=== PATIENT | male | born 1960 | race Caucasian/White ===

== ENCOUNTER 2021-04-09 05:21 | Inpatient (IN) | payer OTHER ==
[~2021-04-09] VITALS: Ht 195.6 cm; Wt 136.1 kg
--- NOTE | 2021-04-09 08:30 | NUR ---
RN NOTE PATIENT WAS TRANSFERRED TO 309-2 VIA [facility]. A/O X4. PRIMARY LANGUAGE IS FAR[place] BUT CAN SPEAK AND UNDERSTAND KOREAN. ABLE TO MAKE NEEDS KNOWN. A/O X4. ON ROOM AIR, TOLERATING WELL. DENIES SOB. IN NO APPARENT DISTRESS. VS BP 141/75 [place] 83 RR 20 T 98.3 SA02 97%. IV ACCESS ON L AC #20, INTACT AND PATENT. NO KNOWN ALLERGIES. PATIENT HAS A KERLIX WRAPPED ON HIS RT FOOT D/T FRACTURE. SAFETY MEASURES MAINTAINED. BED IN LOWEST POSITION, BRAKES LOCKED. SIDE RAILS UP X2. CALL LIGHT WITHIN REACH. WILL CONTINUE PLAN OF CARE.
[2021-04-09] MEDS ORDERED: ATOR40TA PO (08:38)
[2021-04-09] MEDS ORDERED: GLIM2TAB31 PO (08:38)
[2021-04-09] MEDS ORDERED: METF-440 PO (08:38)
[2021-04-09] MEDS ORDERED: ASPI-1169 PO (08:38)
--- NOTE | 2021-04-09 09:43 | NUR ---
RN NOTE RECEIVED REPORT FROM FRANK BACA OF [facility]. Addendum: 04/09/21 at 0944 by JERRY MCCOY RN TIME RECEIVED WAS 0800. CALL BACK NO IS [phone]
[2021-04-09 10:46] VITALS: BP 141/75
[2021-04-09] MEDS ORDERED: ZOLPIDEM TARTRATE 5 MG TABLET PO PRN (11:30)
[2021-04-09] MEDS ORDERED: ONDANSETRON HCL/PF 4 MG/2 ML VIAL IVP PRN (11:30)
[2021-04-09] MEDS ORDERED: Z GUARD REMEDY 2 OZ OINT TP PRN (11:30)
[2021-04-09] MEDS ORDERED: MAG HYDROX/AL HYDROX/SIMETH 30 ML UDC PO PRN (11:30)
[2021-04-09] MEDS ORDERED: ACETAMINOPHEN 325 MG TABLET PO PRN (11:30)
[2021-04-09] MEDS ORDERED: ENOXAPARIN SODIUM 40 MG/0.4 ML DISP.SYRIN SQ SCH ×2 (11:30→11:52)
--- NOTE | 2021-04-09 11:32 | NUR ---
RN NOTE HELD FRANCESCO. R FT HAS NOTED SOME PRESENCE OF BLEEDING.
--- NOTE | 2021-04-09 12:38 | NUR ---
KRISTEN casey called for ortho consult. according to dispatcher Dr. Doty is customer service and sales consultant. All info taken and dr will be paged. awaiting for call back from Dr Doty.
--- NOTE | 2021-04-09 13:01 | NUR ---
RN NOTE SPOKE WITH DR RIGGS AND HE GAVE ORDERED THRU PHONE. ANCEF 1 GM EVERY 8 HRS FOR SUSPECTED INFECTION. ORDER READ BACK AND CARRIED OUT.
--- NOTE | 2021-04-09 13:37 | NUR ---
Received call from Dr. Ira casey to call plastic surgery assistant diamond powder mixer for consult. According to Dr. diaz he discussed the case with Dr. Doty.
--- NOTE | 2021-04-09 13:41 | NUR ---
technician semiconductor development visual aid expert Dr. Morrison paged.
[2021-04-09 14:09] LABS: BASOPHILS # (AUTO) 0.1 K/uL (0.0-0.2); BASOPHILS % (AUTO) 0.7 % (0.0-2.0); EOSINOPHILS % (AUTO) 0.5 % (0.0-6.0); HEMATOCRIT 41 % (39-51); HEMOGLOBIN 13.5 g/dL (13.5-17.5); LYMPHOCYTES # (AUTO) 1.7 K/uL (0.8-4.8); LYMPHOCYTES % (AUTO) 17.9 % (20.0-44.0); MEAN CORPUSCULAR HGB CONC 33 g/dl (31.0-36.0); MEAN CORPUSCULAR VOLUME 86 fL (80-96); MONOCYTES # (AUTO) 0.9 K/uL (0.1-1.30); MONOCYTES % (AUTO) 9.8 % (2.0-12.0); NEUTROPHILS # (AUTO) 6.7 K/uL (1.8-8.9); NEUTROPHILS % (AUTO) 71.1 % (43.0-81.0); PLATELET COUNT (AUTO) 229 K/uL (150-450); RED BLOOD CELL COUNT(AUTO) 4.76 MIL/uL (4.5-6.0); WHITE BLOOD COUNT (AUTO) 9.5 K/uL (4.3-11.0)
[2021-04-09 14:30] LABS: CALCIUM, SERUM 8.7 mg/dL (8.5-10.1); POTASSIUM 3.9 mmol/L (3.5-5.1)
[2021-04-09] MEDS: CEFAZOLIN 1 GM in IV D5W 50 ML IV SCH ×2 (14:37→21:24)
--- NOTE | 2021-04-09 15:09 | NUR ---
RN NOTE GUEVARA GRIFFIN NP, ORDERED FOR MORPHINE 2 MG IV Q4 PRN. ORDER READ BACK AND CARRIED OUT.
[2021-04-09] MEDS ORDERED: DEXTROSE 50%-WATER 50 ML DISP.SYRIN IV PRN (16:00)
[2021-04-09] MEDS ORDERED: CEFAZOLIN 1 GM in IV D5W 50 ML IV SCH (16:00)
[2021-04-09] MEDS: ENOXAPARIN SODIUM 40 MG/0.4 ML DISP.SYRIN SQ SCH (16:00)
[2021-04-09 16:06] VITALS: BP 142/78
--- NOTE | 2021-04-09 16:11 | NUR ---
RN NOTE STILL HELD LOVENOX D/T PRESENCE OF BLEEDING IN THE R FOOT
[2021-04-09] MEDS: MORPHINE SULFATE INJ 2 MG/ML DISP.SYRIN IM PRN ×2 (16:18→20:18)
[2021-04-09] MEDS: BLOOD SUGAR DIAGNOSTIC 1 EACH STRIP IN SCH ×2 (17:01→21:40)
--- NOTE | 2021-04-09 18:32 | NUR ---
RN CLOSING NOTE PATIENT RESTING IN BED. A/O X4. ON ROOM AIR, TOLERATING WELL. DENIES SOB. IN NO APPARENT DISTRESS. IV ACCESS ON L AC #20, INTACT AND PATENT. DUE MEDS GIVEN ORDERED. ALL NEEDS HAVE BEEN MET AND ATTENDED. SAFETY MEASURES MAINTAINED. BED IN LOWEST POSITION, BRAKES LOCKED. SIDE RAILS UP X2. CALL LIGHT WITHIN REACH. WILL ENDORSE CONTINUITY OF CARE TO INCOMING SHIFT.
--- NOTE | 2021-04-09 19:45 | NUR ---
MS RN OPENING NOTES RECEIVED PATIENT LAYING AWAKE IN BED. A/O X4. PATIENT WITH REGULAR AND UNLABORED BREATHING ON ROOM AIR, TOLERATED WELL. NO SIGNS AND SYMPTOMS OF DISTRESS NOTED. NO COMPLAINS OF PAIN AT THIS TIME. IV ACCESS LAC G#20 SL. ACCESS PATENT AND INTACT. SAFETY PRECAUTIONS ENFORCED BED LOCKED AND AT LOWEST POSITION. SIDERAILS UP X2. CALL LIGHT WITHIN REACH AT ALL TIMES. WILL CONTINUE TO MONITOR PATIENT.
[2021-04-09 20:00] VITALS: BP 136/76
--- NOTE | 2021-04-09 20:19 | NUR ---
MS RN NOTES PATIENT COMPLAINED OF PAIN. ADMINISTERED MORPHINE 2MG IM PRN Q4H ORDERED BY HOSPITALIST.
[2021-04-09] MEDS: INSULIN REGULAR, HUMAN 100 UNIT/ML 3 ML VIAL SQ PRN (21:45)
[2021-04-10] MEDS: MORPHINE SULFATE INJ 2 MG/ML DISP.SYRIN IM PRN (00:44)
--- NOTE | 2021-04-10 00:45 | NUR ---
MS RN NOTES PATIENT COMPLAINED OF PAIN. ADMINISTERED MORPHINE 2MG IM PRN Q4H ORDERED BY HOSPITALIST.
[2021-04-10] MEDS: CEFAZOLIN 1 GM in IV D5W 50 ML IV SCH ×3 (04:47→20:17)
[2021-04-10 06:50] LABS: CALCIUM, SERUM 8.4 mg/dL (8.5-10.1); CREATININE 0.9 mg/dL (0.6-1.3); MAGNESIUM 1.9 mg/dL (1.8-2.4); POTASSIUM 3.8 mmol/L (3.5-5.1)
[2021-04-10] MEDS: BLOOD SUGAR DIAGNOSTIC 1 EACH STRIP IN SCH ×4 (07:18→22:35)
[2021-04-10] MEDS: INSULIN REGULAR, HUMAN 100 UNIT/ML 3 ML VIAL SQ PRN ×3 (07:20→17:14)
--- NOTE | 2021-04-10 07:30 | NUR ---
MS RN OPENING NOTES RECEIVED PATIENT IN BED, AWAKE, A/O X4. ON ROOM AIR, TOLERATING WELL. NO SIGNS AND SYMPTOMS OF ACUTE DISTRESS NOTED. NO COMPLAINTS OF PAIN AT THIS TIME. IV ACCESS LAC G#20 SL. ACCESS PATENT AND INTACT. SAFETY PRECAUTIONS IN PLACE: BED LOCKED AND AT LOWEST POSITION. SIDE RAILS UP X2. CALL LIGHT WITHIN REACH AT ALL TIMES. WILL CONTINUE TO MONITOR PATIENT ACCORDINGLY.
--- NOTE | 2021-04-10 07:39 | NUR ---
MS RN CLOSING NOTES PATIENT STILL LAYING AWAKE IN BED. A/O X4. PATIENT WITH REGULAR AND UNLABORED BREATHING ON ROOM AIR, TOLERATED WELL. NO SIGNS AND SYMPTOMS OF DISTRESS NOTED. NO COMPLAINS OF PAIN AT THIS TIME. IV ACCESS LAC G#20 SL. ACCESS PATENT AND INTACT. SAFETY PRECAUTIONS ENFORCED BED LOCKED AND AT LOWEST POSITION. SIDERAILS UP X2. CALL LIGHT WITHIN REACH AT ALL TIMES. WILL ENDORSE KALLI TO DAY SHIFT NURSE.
[2021-04-10 07:42] LABS: BASOPHILS # (AUTO) 0.1 K/uL (0.0-0.2); BASOPHILS % (AUTO) 0.7 % (0.0-2.0); HEMATOCRIT 40 % (39-51); LYMPHOCYTES # (AUTO) 2.6 K/uL (0.8-4.8); LYMPHOCYTES % (AUTO) 22.1 % (20.0-44.0); MEAN CORPUSCULAR HGB CONC 33 g/dl (31.0-36.0); MEAN CORPUSCULAR VOLUME 85 fL (80-96); MONOCYTES % (AUTO) 8.8 % (2.0-12.0); NEUTROPHILS # (AUTO) 7.9 K/uL (1.8-8.9); NEUTROPHILS % (AUTO) 67.4 % (43.0-81.0); PLATELET COUNT (AUTO) 220 K/uL (150-450); RED BLOOD CELL COUNT(AUTO) 4.64 MIL/uL (4.5-6.0); WHITE BLOOD COUNT (AUTO) 11.7 K/uL (4.3-11.0)
[2021-04-10 08:00] VITALS: BP 124/60
[2021-04-10] MEDS: ATORVASTATIN 40 MG TABLET PO SCH (08:05)
[2021-04-10] MEDS: ASPIRIN 81 MG TAB.CHEW PO SCH (08:05)
[2021-04-10 08:17] VITALS: BP 127/61
[2021-04-10] MEDS ORDERED: ENOXAPARIN SODIUM 40 MG/0.4 ML DISP.SYRIN SQ SCH (09:00)
--- NOTE | 2021-04-10 11:13 | NUR ---
WOUND CARE CONSULT: PT SEEN WITH DR GUTHRIE FOR RT FOOT SWELLING WITH FRACTURES AND SUTURED WOUNDS TO RT PLANTAR TOE SURFACE AND SOME OPEN AREAS TO DORSAL GREAT TOE WITH DISCOLORATION TO FOOT, PRESENT ON ADMISSION. RECOMMENDATIONS MADE FOR SKIN PROTECTION AND WOUND CARE. DISCUSSED WITH MD AND NURSING STAFF. DPM CONSULT ALSO REQUESTED TO FOLLOW WOUNDS. DR KOHLI NOTIFIED. FOOT ELEVATED. MD IN AGREEMENT WITH PLAN OF CARE.
[2021-04-10] MEDS: NEOMY SULF/BACITRAC ZN/POLY 15 GM TUBE TP SCH (11:23)
--- NOTE | 2021-04-10 11:30 | NUR ---
RN NOTES SEEN BY WOUND CARE CONSULT. WOUND CARE DONE. STOCK HANDLER ALICIA MONK AWARE OF PATIENT'S REFERRAL.
--- NOTE | 2021-04-10 12:20 | NUR ---
FRANK NOTES CONSENT FOR IRRIGATION AND DRAINAGE SECURED PER DR. GUTHRIE'S ORDER. Addendum: 04/10/21 at 1737 by TEODORA RITCHIE RN CONSENT FOR INCISION AND DRAINAGE SECURED.
[2021-04-10] MEDS: ENOXAPARIN SODIUM 40 MG/0.4 ML DISP.SYRIN SQ SCH (16:00)
[2021-04-10 16:12] VITALS: BP 119/70
--- NOTE | 2021-04-10 17:36 | NUR ---
RN NOTES EKG DONE C/O RT ALEXIS. EKG FILED TO PATIENT'S CHART.
--- NOTE | 2021-04-10 18:28 | NUR ---
MS RN CLOSING NOTES PATIENT IN BED, AWAKE, A/O X4. ON ROOM AIR, TOLERATING WELL. NO SIGNS AND SYMPTOMS OF ACUTE DISTRESS NOTED. NO COMPLAINTS OF PAIN AT THIS TIME. IV ACCESS LAC G#20 SL. ACCESS PATENT AND INTACT. SAFETY PRECAUTIONS IN PLACE: BED LOCKED AND AT LOWEST POSITION. SIDE RAILS UP X2. CALL LIGHT WITHIN REACH AT ALL TIMES. INSTRUCTED ON NPO POST MIDNIGHT, PATIENT VERBALIZED UNDERSTADNING OF INSTRUCTIONS GIVEN. DUE MEDS GIVEN ORDERED, ALL NEEDS ATTENDED AND MET. WILL ENDORSE TO ONCOMING SHIFT FOR KALLI.
--- NOTE | 2021-04-10 19:56 | NUR ---
MS RN OPENING NOTES Patient A&Ox4 resting in bed at this time. Able to make needs known. Denies any needs at this time. No signs of distress. Reminded pt. to use urinal and call if having BM for assistance as pt. is NWB to R foot. Patient says there is some R foot discomfort but is tolerable at this time. Reminded pt. will be NPO except meds post midnight for irrigation and drainage of R foot wound. Pt. agreeable. Will continue to monitor.
[2021-04-10 20:00] VITALS: BP 125/79
--- NOTE | 2021-04-10 22:30 | NUR ---
BS 151 refused insulin says i cannot eat anything overnight. I do not want insulin.
[2021-04-11] MEDS: MORPHINE SULFATE INJ 2 MG/ML DISP.SYRIN IM PRN ×3 (01:21→20:54)
[2021-04-11] MEDS: CEFAZOLIN 1 GM in IV D5W 50 ML IV SCH ×3 (05:16→22:39)
--- NOTE | 2021-04-11 06:30 | NUR ---
Patient A&Ox4. VSS overnight. Only c/o is of foot pain to R foot fx site. Pain management as per MD order effective. Dressing is c/d/i. Patient is NWB to R foot. Patient has been NPO since midnight for AM I&D procedure. No s/s of hypo or hyperglycemic reactions noted. AM BS 137 insulin held d/t patient NPO status. Tolerating IV ABX well.
[2021-04-11] MEDS: BLOOD SUGAR DIAGNOSTIC 1 EACH STRIP IN SCH ×4 (06:46→22:38)
[2021-04-11 06:55] LABS: BASOPHILS # (AUTO) 0.1 K/uL (0.0-0.2); BASOPHILS % (AUTO) 0.6 % (0.0-2.0); EOSINOPHILS % (AUTO) 1.4 % (0.0-6.0); HEMATOCRIT 37 % (39-51); HEMOGLOBIN 12.6 g/dL (13.5-17.5); LYMPHOCYTES # (AUTO) 2.5 K/uL (0.8-4.8); LYMPHOCYTES % (AUTO) 24.6 % (20.0-44.0); MEAN CORPUSCULAR HGB CONC 34 g/dl (31.0-36.0); MEAN CORPUSCULAR VOLUME 85 fL (80-96); MONOCYTES # (AUTO) 0.9 K/uL (0.1-1.30); MONOCYTES % (AUTO) 9.2 % (2.0-12.0); NEUTROPHILS # (AUTO) 6.4 K/uL (1.8-8.9); NEUTROPHILS % (AUTO) 64.2 % (43.0-81.0); PLATELET COUNT (AUTO) 202 K/uL (150-450); RED BLOOD CELL COUNT(AUTO) 4.35 MIL/uL (4.5-6.0)
--- NOTE | 2021-04-11 07:10 | NUR ---
RN OPENING NOTE RECEIVED PATIENT IN BED. A/O X4. ON ROOM AIR, TOLERATING WELL. DENIES SOB. IN NO APPARENT DISTRESS. CHANGED DIET TO NPO EXCEPT MEDS ORDERED BY DR GUTHRIE. PATIENT WILL BE GOING FOR I & D OF THE RIGHT FOOT. NON WEIGHT BEARING ON R FT. IV ACCESS ON L AC #20 G, INTACT AND PATENT. SAFETY MEASURES MAINTAINED. BED IN LOWEST POSITION, BRAKES, LOCKED. SIDE RAILS UP X2. CALL LIGHT WITHIN REACH. WILL CONTINUE PLAN OF CARE.
[2021-04-11 07:34] LABS: CALCIUM, SERUM 8.4 mg/dL (8.5-10.1); CREATININE 0.8 mg/dL (0.6-1.3); PHOSPHORUS 3.9 mg/dL (2.5-4.9); POTASSIUM 3.5 mmol/L (3.5-5.1)
[2021-04-11 08:00] VITALS: BP 110/68
[2021-04-11] MEDS: ASPIRIN 81 MG TAB.CHEW PO SCH (08:13)
[2021-04-11] MEDS: ATORVASTATIN 40 MG TABLET PO SCH (08:13)
[2021-04-11] MEDS: NEOMY SULF/BACITRAC ZN/POLY 15 GM TUBE TP SCH (08:16)
[2021-04-11] MEDS ORDERED: ANESTHESIA TRAY IN PYXIS 1 EA TRAY MC ONE ×2 (08:21→08:27)
[2021-04-11] MEDS ORDERED: HYDROMORPHONE INJ 2 MG/ML DISP.SYRIN ONE (08:21)
[2021-04-11] MEDS ORDERED: BUPIVACAINE MPF W/EPI 0.25% 30 ML VIAL ONE (08:27)
[2021-04-11] MEDS ORDERED: BUPIVACAINE 0.5 % PF 150 MG/30 ML VIAL ONE (08:27)
[2021-04-11] MEDS ORDERED: FAMOTIDINE/PF INJ 20 MG/2 ML VIAL IV ONE (09:00)
[2021-04-11] MEDS ORDERED: SEVOFLURANE 250 ML BOTTLE IH ONE (09:09)
[2021-04-11] MEDS ORDERED: HYDROGEN PEROXIDE 480 ML BOTTLE ONE (09:38)
--- NOTE | 2021-04-11 10:45 | NUR ---
RN NOTE PATIENT WAS BROUGHT BACK TO HIS ROOM, STABLE. VS 138/77 OR 68 RR 19 SA02 96% ORDERS ARE TO CONTINUE ALL MEDS, DIET AND NON WEIGHT BEARING ON RLE.
[2021-04-11] MEDS: INSULIN REGULAR, HUMAN 100 UNIT/ML 3 ML VIAL SQ PRN ×3 (12:08→22:48)
[2021-04-11 16:00] VITALS: BP 122/84
[2021-04-11] MEDS: ENOXAPARIN SODIUM 40 MG/0.4 ML DISP.SYRIN SQ SCH (16:00)
--- NOTE | 2021-04-11 16:06 | NUR ---
RN NOTE HELD LOVENOX D/T SOME PRESENCE OF BLEEDING IN THE RT FOOT
--- NOTE | 2021-04-11 18:23 | NUR ---
RN CLOSING NOTE PATIENT RESTING IN BED. A/O X4. ON ROOM AIR, TOLERATING WELL. DENIES SOB. IN NO APPARENT DISTRESS. NON WEIGHT BEARING ON R FT. IV ACCESS ON L AC #20 G, INTACT AND PATENT. DUE MEDS GIVEN ORDERED. ALL NEEDS HAVE BEEN MET AND ATTENDED. SAFETY MEASURES MAINTAINED. BED IN LOWEST POSITION, BRAKES, LOCKED. SIDE RAILS UP X2. CALL LIGHT WITHIN REACH. WILL ENDORSE CONTINUITY OF CARE TO INCOMING SHIFT.
--- NOTE | 2021-04-11 19:54 | NUR ---
MS RN OPENING NOTE PATIENT RECEIVED AWAKE IN BED. NO S/S OF DISTRESS, BREATHING SYMMETRICAL. LAC #20 SL PATENT. SAFETY MEASURES IN PLACE: BED AT LOWEST POSITION, RAILS UP X2, CALL STARK WITHIN REACH. WILL CONTINUE TO MONITOR PATIENT.
[2021-04-11 20:00] VITALS: BP 145/79
[2021-04-12] MEDS: CEFAZOLIN 1 GM in IV D5W 50 ML IV SCH ×3 (05:59→20:48)
[2021-04-12] MEDS: BLOOD SUGAR DIAGNOSTIC 1 EACH STRIP IN SCH ×4 (06:51→22:00)
[2021-04-12] MEDS: INSULIN REGULAR, HUMAN 100 UNIT/ML 3 ML VIAL SQ PRN ×4 (06:54→22:01)
--- NOTE | 2021-04-12 07:07 | NUR ---
MS RN CLOSING NOTE PATIENT IS AWAKE IN BED. A/OX4. NO S/S OF DISTRESS; BREATHING SYMMETRICAL. SAFETY MEASURES IN PLACE: BED AT LOWEST POSITION, RAILS UP X2, CALL STARK WITHIN REACH. WILL ENDORSE TO NEXT SHIFT FOR KALLI.
--- NOTE | 2021-04-12 07:16 | NUR ---
RN NOTES PATIENT RESTING IN BED, EYES CLOSED, ABLE TO BE AWAKENED. A/O X4, ABLE TO MAKE NEEDS KNOWN. ON ROOM AIR, BREATHING EVEN AND UNLABORED. NON WEIGHT-BEARING ON R FOOT, S/P SURGERY. IV ACCESS ON L AC #20 G, INTACT AND PATENT. SAFETY MEASURES IN PLACE: BED IN LOWEST POSITION, BRAKES LOCKED, SIDE RAILS UP X2, CALL LIGHT WITHIN REACH. WILL CONTINUE TO MONITOR.
[2021-04-12 08:00] VITALS: BP 126/84
[2021-04-12 08:46] LABS: BASOPHILS % (AUTO) 0.3 % (0.0-2.0); EOSINOPHILS % (AUTO) 0.8 % (0.0-6.0); HEMATOCRIT 40 % (39-51); HEMOGLOBIN 13.3 g/dL (13.5-17.5); LYMPHOCYTES # (AUTO) 2.5 K/uL (0.8-4.8); LYMPHOCYTES % (AUTO) 19.4 % (20.0-44.0); MEAN CORPUSCULAR HGB CONC 33 g/dl (31.0-36.0); MEAN CORPUSCULAR VOLUME 85 fL (80-96); MONOCYTES % (AUTO) 7.6 % (2.0-12.0); NEUTROPHILS # (AUTO) 9.2 K/uL (1.8-8.9); NEUTROPHILS % (AUTO) 71.9 % (43.0-81.0); PLATELET COUNT (AUTO) 231 K/uL (150-450); RED BLOOD CELL COUNT(AUTO) 4.69 MIL/uL (4.5-6.0); WHITE BLOOD COUNT (AUTO) 12.8 K/uL (4.3-11.0)
[2021-04-12] MEDS: ATORVASTATIN 40 MG TABLET PO SCH (08:50)
[2021-04-12] MEDS: ASPIRIN 81 MG TAB.CHEW PO SCH (08:53)
[2021-04-12] MEDS: NEOMY SULF/BACITRAC ZN/POLY 15 GM TUBE TP SCH (09:11)
[2021-04-12 10:01] LABS: CALCIUM, SERUM 8.6 mg/dL (8.5-10.1); CREATININE 0.8 mg/dL (0.6-1.3); POTASSIUM 3.6 mmol/L (3.5-5.1)
[2021-04-12] MEDS ORDERED: ACET325T53 PO (10:53)
[2021-04-12] MEDS ORDERED: ALLA266C2 TP (10:53)
[2021-04-12] MEDS ORDERED: ENOX40DI SQ (10:53)
[2021-04-12] MEDS ORDERED: Neomy Sulf/Bacitrac Zn/Poly TP (10:53)
[2021-04-12] MEDS ORDERED: CEPH500C2 PO (10:59)
--- NOTE | 2021-04-12 11:30 | NUR ---
RN NOTES PATIENT WAS SEEN BY GORDY CRAFT NP, AND MADE AWARE OF PLAN OF CARE.
--- NOTE | 2021-04-12 13:45 | NUR ---
RN NOTES COVID SWAB SPECIMEN OBTAINED AND SENT TO LAB.
[2021-04-12 16:00] VITALS: BP 128/71
[2021-04-12] MEDS: ENOXAPARIN SODIUM 40 MG/0.4 ML DISP.SYRIN SQ SCH (16:50)
--- NOTE | 2021-04-12 19:00 | NUR ---
RN CLOSING NOTES PT IN BED, AWAKE, A&OX4. PT IS ABLE TO ADDRESS NEEDS. NO COMPLAINT OF PAIN OR DISCOMFORT AT THIS TIME. IV LINES INTACT AND PATENT. ALL NEEDS MET, ALL ORDERS CARRIED OUT. SAFETY MEASURES MAINTAINED: BED LOCKED, LOWEST POSITION, CALL LIGHT WITHIN REACH. WILL ENDORSE TO ARCHIVIST POLITICAL HISTORY RN FOR KALLI.
--- NOTE | 2021-04-12 19:30 | NUR ---
MS RN OPENING NOTE PATIENT RECEIVED AWAKE IN BED. A/OX4. LAC #20 PATENT. NO S/S OF DISTRESS, BREATHING SYMMETRICAL. SAFETY MEASURES IN PLACE: BED AT LOWEST POSITION, RAILS UP X2, CALL STARK WITHIN REACH. WILL CONTINUE TO MONITOR PATIENT.
[2021-04-12 20:00] VITALS: BP 136/88
[2021-04-12] MEDS: MORPHINE SULFATE INJ 2 MG/ML DISP.SYRIN IM PRN (21:20)
[2021-04-13] MEDS: CEFAZOLIN 1 GM in IV D5W 50 ML IV SCH ×3 (04:18→21:43)
[2021-04-13] MEDS: BLOOD SUGAR DIAGNOSTIC 1 EACH STRIP IN SCH ×4 (06:35→22:00)
[2021-04-13] MEDS: INSULIN REGULAR, HUMAN 100 UNIT/ML 3 ML VIAL SQ PRN ×3 (06:40→23:14)
--- NOTE | 2021-04-13 07:01 | NUR ---
MS RN CLOSING NOTE PATIENT IS ASLEEP IN BED. A/OX4. NO S/S OF DISTRESS, BREATHING SYMMETRICAL AND UNLABORED. SAFETY MEASURES IN PLACE: BED AT LOWEST POSITION, RAILS UP X2, CALL STARK WITHIN REACH. WILL ENDORSE TO NEXT SHIFT FOR KALLI.
--- NOTE | 2021-04-13 07:20 | NUR ---
MS RN OPENING NOTES RECEIVED PT IN BED, AWAKE, A/O X4. NO SIGNS OF ACUTE DISTRESS. ON ROOM AIR, NO SOB NOTED, BREATHING EVEN AND UNLABORED. IV ACCESS ON LEFT AC #20G ON SALINE LOCK, PATENT AND INTACT. WITH RIGHT FOOT SURGICAL WOUND COVERED WITH DRY DRESSING AND ELASTIC BANDAGE, DRY AND INTACT. DENIES ANY PAIN OR DISCOMFORT AT THIS TIME. SAFETY MEASURES IN PLACE. BED LOCKED AND IN LOWEST POSITION, SIDE RAILS UP X2, CALL LIGHT PLACED WITHIN EASY REACH, WILL CONTINUE TO MONITOR PATIENT.
[2021-04-13 08:00] VITALS: BP 137/85
[2021-04-13] MEDS: ASPIRIN 81 MG TAB.CHEW PO SCH (09:34)
[2021-04-13] MEDS: ATORVASTATIN 40 MG TABLET PO SCH (09:34)
[2021-04-13] MEDS: NEOMY SULF/BACITRAC ZN/POLY 15 GM TUBE TP SCH (10:20)
[2021-04-13] MEDS ORDERED: LACTULOSE 10 G/15 ML UDC (PYXIS) PO ONE (12:00)
[2021-04-13 16:00] VITALS: BP 122/75
--- NOTE | 2021-04-13 16:00 | NUR ---
MS RN NOTE SEEN BY PT/ OT. SEEN BY DR. CRAFT. WILL CONTINUE TO MONITOR.
[2021-04-13] MEDS: ENOXAPARIN SODIUM 40 MG/0.4 ML DISP.SYRIN SQ SCH (17:21)
--- NOTE | 2021-04-13 19:00 | NUR ---
MS RN CLOSING NOTES .PT IN BED, AWAKE, A/O X4. NO SIGNS OF ACUTE DISTRESS. ON ROOM AIR, NO SOB NOTED, BREATHING EVEN AND UNLABORED. IV ACCESS ON LEFT AC #20G ON SALINE LOCK, PATENT AND INTACT. WITH RIGHT FOOT SURGICAL WOUND COVERED WITH DRY DRESSING AND ELASTIC BANDAGE, DRY AND INTACT. DENIES ANY PAIN OR DISCOMFORT AT THIS TIME. SAFETY MEASURES IN PLACE. BED LOCKED AND IN LOWEST POSITION, SIDE RAILS UP X2, CALL LIGHT PLACED WITHIN EASY REACH. STILL FOR DISCHARGE, AWAITING PLACEMENT. WILL ENDORSE TO NEXT SHIFT FOR CONTINUITY OF CARE.
[2021-04-13 20:00] VITALS: BP 118/56
[2021-04-14] MEDS: CEFAZOLIN 1 GM in IV D5W 50 ML IV SCH ×3 (05:52→21:03)
[2021-04-14] MEDS: BLOOD SUGAR DIAGNOSTIC 1 EACH STRIP IN SCH ×4 (06:27→21:40)
[2021-04-14] MEDS: INSULIN REGULAR, HUMAN 100 UNIT/ML 3 ML VIAL SQ PRN ×4 (06:28→22:03)
--- NOTE | 2021-04-14 07:35 | NUR ---
RN OPENING NOTES Patient seen comfortably lying in bed, breathing even and unlabored, no SOB, no apparent distress noted, denies any pain or discomfort at this time, no grimacing. Call light left within reach, safety precautions in place, brakes locked, side rails up X 2, will monitor closely for any changes.
[2021-04-14 08:00] VITALS: BP 106/63
[2021-04-14] MEDS: ATORVASTATIN 40 MG TABLET PO SCH (08:37)
[2021-04-14] MEDS: ASPIRIN 81 MG TAB.CHEW PO SCH (08:37)
[2021-04-14] MEDS: NEOMY SULF/BACITRAC ZN/POLY 15 GM TUBE TP SCH (09:29)
[2021-04-14 16:00] VITALS: BP_SYST 113; BP_SYST 169; BP_DIAS 70; BP_DIAS 84
[2021-04-14] MEDS: ENOXAPARIN SODIUM 40 MG/0.4 ML DISP.SYRIN SQ SCH (16:20)
--- NOTE | 2021-04-14 18:26 | NUR ---
RN CLOSING NOTES Patient lying in bed, respirations even and unlabored, no SOB, no dizziness, no palpitations, no apparent distress noted, denies any pain or discomfort, no grimacing. All medications given per MD order, tolerating well. No s/s of hypo/hyperglycemia at this time, no change in level of consciousness no tremors, insulin given per sliding scale as needed per MD order. All needs attended, kept clean and dry, call light left within reach, safety precautions in place, brakes locked, side rails up X 2, will endorse to next shift for continuity of care.
--- NOTE | 2021-04-14 19:35 | NUR ---
MS RN NOTES RECEIVED ON BED,ON LEFT SIDE POSITION,SLEEPING,BREATHING EASY,NO SOB,SALINE LOCK LEFT AC INTACT AND PATENT.S/P RIGHT FOOT IRRIGATION DEBRIDEMENT,DRESSING INTACT AND DRY.PAIN TOLERABLE AT THE MOMENT.ABLE TO AMBULATE WITH WALKER,NON WEIGHT BEARING ON RIGHT FOOT,PATIENT AWARE.CALL LIGHT IN REACH,NEEDS ANTICIPATED.
[2021-04-14 20:00] VITALS: BP 142/87
--- NOTE | 2021-04-14 21:00 | NUR ---
MS RN NOTES DUE IV ANCEF 1GM HUNG
[2021-04-14] MEDS: MORPHINE SULFATE INJ 2 MG/ML DISP.SYRIN IM PRN (21:04)
--- NOTE | 2021-04-14 21:04 | NUR ---
MS RN NOTES PAIN MANAGEMENT C/O RIGHT FOOT PAIN 8/10 ON PAIN SCALE,MORPHINE 2MG IV GIVEN FOR STRONG PAIN.
--- NOTE | 2021-04-14 21:30 | NUR ---
MS RN NOTES ACCU-CHECK BLOOD SUGAR CHECK 163,COVERED WITH HUMULIN R 3 UNITS PER SLIDING SCALE.
[2021-04-14 22:00] VITALS: BP 112/87
[2021-04-15] MEDS: CEFAZOLIN 1 GM in IV D5W 50 ML IV SCH ×3 (04:53→21:37)
--- NOTE | 2021-04-15 05:30 | NUR ---
MS RN NOTES ACCU-CHECK BLOOD SUGAR CHECK 157,COVERED WITH HUMULIN R 2 UNITS PER SLIDING SCALE.
[2021-04-15] MEDS: BLOOD SUGAR DIAGNOSTIC 1 EACH STRIP IN SCH ×4 (05:35→22:49)
[2021-04-15] MEDS: INSULIN REGULAR, HUMAN 100 UNIT/ML 3 ML VIAL SQ PRN ×3 (05:37→22:59)
--- NOTE | 2021-04-15 06:22 | NUR ---
MS RN NOTES FAIRLY RESTED AT NIGHT,RIGHT FOOT PAIN IMPROVED,IV ABX TOLERATED WELL.FOR DISCHARGE PLANNING,CASE MANAGEMENT WORKING FOR PLACEMENT.MD TO CHANGE DRESSING ON RIGHT FOOT REPORTED.CALL LIGHT IN REACH,NEEDS ATTENDED.
--- NOTE | 2021-04-15 07:30 | NUR ---
MS RN OPENING NOTES RECEIVED PATIENT ON BED, AWAKE AND A/O X4. ON ROOM AIR BREATHING EVENLY AND UNLABORED. NOT IN DISTRESS. WITH NO COMPLAINTS OF PAIN OR DISCOMFORT AT THIS TIME. WITH IV ACCESS AT LEFT AC G20, INTACT AND PATENT. SAFETY MEASURES IN PLACE. CALL LIGHT WITHIN REACH. BED ON LOWEST AND LOCKED POSITION, SIDE RAILS UP X2. WILL CONTINUE TO MONITOR.
[2021-04-15 09:02] VITALS: BP 127/80
[2021-04-15] MEDS: ATORVASTATIN 40 MG TABLET PO SCH (09:37)
[2021-04-15] MEDS: NEOMY SULF/BACITRAC ZN/POLY 15 GM TUBE TP SCH (09:37)
[2021-04-15] MEDS: ASPIRIN 81 MG TAB.CHEW PO SCH (09:37)
[2021-04-15] MEDS: MORPHINE SULFATE INJ 2 MG/ML DISP.SYRIN IM PRN (15:43)
[2021-04-15 16:01] VITALS: BP 125/79
[2021-04-15] MEDS: ENOXAPARIN SODIUM 40 MG/0.4 ML DISP.SYRIN SQ SCH (16:49)
--- NOTE | 2021-04-15 18:31 | NUR ---
MS RN CLOSING NOTES PATIENT RESTING ON BED, AWAKE AND A/O X4. ON ROOM AIR BREATHING EVENLY AND UNLABORED. NOT IN DISTRESS. WITH NO COMPLAINTS OF PAIN OR DISCOMFORT AT THIS TIME. WITH IV ACCESS AT LEFT HAND G22 SALINE LOCKED, INTACT AND PATENT. SAFETY MEASURES IN PLACE. CALL LIGHT WITHIN REACH. BED ON LOWEST AND LOCKED POSITION, SIDE RAILS UP X2. WILL ENDORSE TO NEXT SHIFT FOR KALLI.
--- NOTE | 2021-04-15 19:10 | NUR ---
RN NOTES: AT 1908 RECEIVED PATIENT AWAKE ON BED TALKING ON THE PHONE, A/OX4, ORIENTED TO UNIT AND STAFF, CONVERSANT, ON ROOM AIR, NO SIGN OF ANY RESPIRATORY DISTRESS, BREATHING SPONTANEOUSLY IN ROOM AIR, NWB-ON RLE, ABLE TO AMBULATE WITH WALKER, RIGHT WOUND DRESSING DRY AND INTACT, NO DRAINAGE NOTED.LAC G#22 INTACT -FOR POSSIBLE DISCHARGE, AWAITING FOR HIS PLACEMENT, POST 72 HOURS IV/ANTIBIOTIC GIVEN.
[2021-04-15 20:00] VITALS: BP 117/76
--- NOTE | 2021-04-16 01:48 | NUR ---
RN NOTES: HE WAS AWAKE IN BETWEEN, JUST NOW ABLE TO SLEEP AND REST, KEPT CALL LIGHT WITHIN EASY REACH.
[2021-04-16] MEDS: CEFAZOLIN 1 GM in IV D5W 50 ML IV SCH ×3 (04:19→21:21)
[2021-04-16] MEDS: BLOOD SUGAR DIAGNOSTIC 1 EACH STRIP IN SCH ×4 (06:51→22:39)
[2021-04-16] MEDS: INSULIN REGULAR, HUMAN 100 UNIT/ML 3 ML VIAL SQ PRN ×4 (06:52→22:46)
--- NOTE | 2021-04-16 07:30 | NUR ---
MS RN OPENING NOTES RECEIVED PATIENT RESTING ON BED AND A/O X4. ON ROOM AIR BREATHING EVENLY AND UNLABORED. NOT IN DISTRESS. WITH NO COMPLAINTS OF PAIN OR DISCOMFORT AT THIS TIME. WITH IV ACCESS AT LEFT AC G20, INTACT AND PATENT. SAFETY MEASURES IN PLACED. CALL LIGHT WITHIN REACH. BED ON LOWEST AND LOCKED POSITION, SIDE RAILS UP X2. WILL CONTINUE TO MONITOR.
[2021-04-16 08:00] VITALS: BP 117/64
[2021-04-16] MEDS: ASPIRIN 81 MG TAB.CHEW PO SCH (09:01)
[2021-04-16] MEDS: NEOMY SULF/BACITRAC ZN/POLY 15 GM TUBE TP SCH (09:01)
[2021-04-16] MEDS: ATORVASTATIN 40 MG TABLET PO SCH (09:01)
[2021-04-16] MEDS: MORPHINE SULFATE INJ 2 MG/ML DISP.SYRIN IM PRN ×2 (15:10→22:09)
[2021-04-16 16:23] VITALS: BP 112/56
[2021-04-16] MEDS: ENOXAPARIN SODIUM 40 MG/0.4 ML DISP.SYRIN SQ SCH (16:29)
--- NOTE | 2021-04-16 18:56 | NUR ---
MS RN CLOSING NOTES PATIENT RESTING ON BED AND A/O X4. ON ROOM AIR BREATHING EVENLY AND UNLABORED. NOT IN DISTRESS. WITH NO COMPLAINTS OF PAIN OR DISCOMFORT AT THIS TIME. WITH IV ACCESS AT LEFT HAND G20, INTACT AND PATENT. DUE MEDS GIVEN. SAFETY MEASURES IN PLACED. CALL LIGHT WITHIN REACH. BED ON LOWEST AND LOCKED POSITION, SIDE RAILS UP X2. WILL ENDORSE TO NEXT SHIFT FOR KALLI.
--- NOTE | 2021-04-16 19:40 | NUR ---
RN ms opening notes Pt is laying in bed comfortably listening music on his cellphone. Pt is alert and orientedX4. Respiration is normal in room air. No SOB. No S/s of distress noted. IV site on L hand# 20 is clean, intact and flushes well. dressing on R foot is clean, intact and dry. Safety precautions is maintained. bed at low position, brakes locked, side rails upX3, hob elevated, call light is within reach. Will continue to monitor.
[2021-04-16 20:00] VITALS: BP_SYST 104; BP_SYST 136; BP_DIAS 51; BP_DIAS 79
--- NOTE | 2021-04-17 03:00 | NUR ---
RN notes Wound care provided as ordered. Pt refused pictures taken. Explained risks and benefits. Pt keep refusing.
[2021-04-17] MEDS: CEFAZOLIN 1 GM in IV D5W 50 ML IV SCH ×3 (04:52→21:10)
[2021-04-17] MEDS: BLOOD SUGAR DIAGNOSTIC 1 EACH STRIP IN SCH ×4 (06:30→22:19)
[2021-04-17] MEDS: INSULIN REGULAR, HUMAN 100 UNIT/ML 3 ML VIAL SQ PRN ×4 (06:31→22:32)
--- NOTE | 2021-04-17 06:40 | NUR ---
RN ms closing notes Pt is resting in bed comfortably. Pt is alert and orientedX4. Respiration is normal in room air. No SOB. No S/s of distress noted. IV site on L hand# 20 is clean, intact and flushes well. Routine meds were given as ordered. Wound care provided as ordered. dressing on R foot is clean, intact and dry. Safety precautions is maintained. bed at low position, brakes locked, side rails upX3, hob elevated, call light is within reach. Will endorse to am nurse for KALLI.
--- NOTE | 2021-04-17 07:25 | NUR ---
MS RN OPENING NOTES RECEIVED PATIENT RESTING ON BED AND A/O X4. ON ROOM AIR, NO SOB NOTED, BREATHING EVEN AND UNLABORED. NOT IN DISTRESS. NO COMPLAINTS OF PAIN OR DISCOMFORT AT THIS TIME. WITH IV ACCESS AT LEFT HAND G20, INTACT AND PATENT. SAFETY MEASURES IN PLACED. CALL LIGHT WITHIN REACH. BED ON LOWEST AND LOCKED POSITION, SIDE RAILS UP X2. WILL CONTINUE TO MONITOR.
[2021-04-17 08:00] VITALS: BP 135/82
[2021-04-17] MEDS: ASPIRIN 81 MG TAB.CHEW PO SCH (08:21)
[2021-04-17] MEDS: ATORVASTATIN 40 MG TABLET PO SCH (08:21)
[2021-04-17] MEDS: NEOMY SULF/BACITRAC ZN/POLY 15 GM TUBE TP SCH (08:24)
[2021-04-17] MEDS: ENOXAPARIN SODIUM 40 MG/0.4 ML DISP.SYRIN SQ SCH (15:47)
[2021-04-17 16:00] VITALS: BP 120/74
[2021-04-17] MEDS: MORPHINE SULFATE INJ 2 MG/ML DISP.SYRIN IM PRN ×2 (16:30→21:26)
--- NOTE | 2021-04-17 19:00 | NUR ---
MS RN CLOSING NOTES PATIENT AWAKE IN BED, A/O X4. ON ROOM AIR, NO SOB NOTED, BREATHING EVEN AND UNLABORED. NOT IN ACUTE DISTRESS. MEDICATED WITH MORPHINE SULFATE FOR RIGHT LEG PAIN. REMINDED PT NOT TO PUT WEIGHT ON RIGHT LEG. WITH IV ACCESS AT LEFT HAND G20, INTACT AND PATENT. IV ANTIBIOTIC GIVEN ORDERED, ALL DUE MEDS GIVEN TOLERATED WELL. SAFETY MEASURES IN PLACED. CALL LIGHT WITHIN REACH. BED ON LOWEST AND LOCKED POSITION, SIDE RAILS UP X2. WILL ENDORSE TO NEXT SHIFT.
--- NOTE | 2021-04-17 19:20 | NUR ---
RN ms opening notes Pt is laying in bed comfortably watching TV. Pt is alert and orientedX4. Respiration is normal in room air. No SOB. No S/s of distress noted. IV site on L hand# 20 is clean, intact and flushes well. dressing on R foot is clean, intact and dry. Safety precautions is maintained. bed at low position, brakes locked, side rails upX3, hob elevated, call light is within reach. Will continue to monitor.
[2021-04-17 20:00] VITALS: BP 136/79
--- NOTE | 2021-04-17 21:26 | NUR ---
RN notes Pt is complaining of pain on R leg and foot and requesting pain med. Administered morphine 2 mg/iv push/prn as ordered for pain. VS is stable. Safety precautions is maintained. Will continue to monitor.
[2021-04-18] MEDS: MORPHINE SULFATE INJ 2 MG/ML DISP.SYRIN IM PRN ×2 (03:27→18:26)
[2021-04-18] MEDS: CEFAZOLIN 1 GM in IV D5W 50 ML IV SCH (04:00)
--- NOTE | 2021-04-18 06:45 | NUR ---
RN ms closing notes Pt is resting in bed comfortably. Pt is alert and orientedX4. Respiration is normal in room air. No SOB. No S/s of distress noted. IV site on L hand# 20 is clean, intact and SL. VS is stable. Routine meds were given as ordered including pain meds for pain management. Dressing on R foot is clean, intact and dry. all needs met and attended. Safety precautions is maintained. bed at low position, brakes locked, side rails upX3, hob elevated, call light is within reach. Will endorse to am nurse for KALLI.
[2021-04-18] MEDS: BLOOD SUGAR DIAGNOSTIC 1 EACH STRIP IN SCH ×4 (06:46→22:12)
[2021-04-18] MEDS: INSULIN REGULAR, HUMAN 100 UNIT/ML 3 ML VIAL SQ PRN ×3 (06:47→22:11)
--- NOTE | 2021-04-18 07:52 | NUR ---
RN OPENING NOTES PATIENT IS IN BED RESTING, AWAKE. A/O X4. NO S/S OF PAIN NOTED AT THIS TIME. ON ROOM AIR, NO DISTRESS OR SHORTNESS OF BREATH NOTED. IV LEFT HAND #20G, INTACT AND PATENT. FALL AND SAFETY MEASURES IN PLACE, BED ALARM ON, BED IN LOW AND LOCK POSITION, CALL LIGHT AND TABLE WITHIN EASY REACH, SIDE RAILS UP X2. WILL CONTINUE TO MONITOR.
[2021-04-18 08:00] VITALS: BP 132/74
[2021-04-18] MEDS: ATORVASTATIN 40 MG TABLET PO SCH (08:37)
[2021-04-18] MEDS: NEOMY SULF/BACITRAC ZN/POLY 15 GM TUBE TP SCH (08:37)
[2021-04-18] MEDS: ASPIRIN 81 MG TAB.CHEW PO SCH (08:37)
[2021-04-18 16:00] VITALS: BP 139/86
[2021-04-18] MEDS: ENOXAPARIN SODIUM 40 MG/0.4 ML DISP.SYRIN SQ SCH (18:20)
--- NOTE | 2021-04-18 19:05 | NUR ---
MS RN OPENING NOTES: RECEIVED PATIENT RESTING IN BED COMFORTABLY WITH RIGHT FOOT ELEVATED WITH PILLOWS, NO S/S OF DISTRESS NOTED. A/O X4. NO COMPLAIN OF PAIN. CALL LIGHT WITHIN REACH. URINAL AT THE BEDSIDE. BED IN LOWEST AND LOCKED POSITION. WALKER AT THE BEDSIDE. PATIENT SAID THAT HE WALKED WITH PT TODAY USING A WALKER.
--- NOTE | 2021-04-18 19:55 | NUR ---
RN CLOSING NOTES PATIENT IS IN BED RESTING, AWAKE. A/O X4. NO S/S OF PAIN NOTED AT THIS TIME. ON ROOM AIR, NO DISTRESS OR SHORTNESS OF BREATH NOTED. IV LEFT HAND #20G, INTACT AND PATENT. FALL AND SAFETY MEASURES IN PLACE, BED ALARM ON, BED IN LOW AND LOCK POSITION, CALL LIGHT AND TABLE WITHIN EASY REACH, SIDE RAILS UP X2. WILL ENDORSE TO ADMINISTRATIVE RESOURCES ASSOCIATE.
[2021-04-18 20:47] VITALS: BP 126/72
[2021-04-19] MEDS: BLOOD SUGAR DIAGNOSTIC 1 EACH STRIP IN SCH ×4 (06:37→21:56)
[2021-04-19] MEDS: INSULIN REGULAR, HUMAN 100 UNIT/ML 3 ML VIAL SQ PRN ×4 (06:39→22:21)
--- NOTE | 2021-04-19 07:07 | NUR ---
MS RN OPENING NOTES RECEIVED PATIENT IS IN BED RESTING, AWAKE. A/O X4. NO S/S OF PAIN NOTED AT THIS TIME. PATIENT IS BREATHING EVENLY AND NONLABORED ON ROOM AIR, NO DISTRESS OR SHORTNESS OF BREATH NOTED. IV ACCESS NOTED ON LEFT HAND #20G, INTACT AND PATENT. FALL AND SAFETY MEASURES IN PLACE, BED ALARM ON, BED IN LOW AND LOCK POSITION, CALL LIGHT AND TABLE WITHIN EASY REACH, SIDE RAILS UP X2. WILL CONTINUE TO MONITOR.
[2021-04-19 08:00] VITALS: BP 151/90
[2021-04-19] MEDS: ASPIRIN 81 MG TAB.CHEW PO SCH (08:15)
[2021-04-19] MEDS: ATORVASTATIN 40 MG TABLET PO SCH (08:15)
[2021-04-19] MEDS: NEOMY SULF/BACITRAC ZN/POLY 15 GM TUBE TP SCH (08:16)
[2021-04-19] MEDS: ENOXAPARIN SODIUM 40 MG/0.4 ML DISP.SYRIN SQ SCH (15:27)
[2021-04-19 16:00] VITALS: BP 148/79
--- NOTE | 2021-04-19 18:24 | NUR ---
MS RN CLOSING NOTES PATIENT IS IN BED RESTING, AWAKE. A/O X4. NO S/S OF PAIN NOTED AT THIS TIME. PATIENT IS BREATHING EVENLY AND NONLABORED ON ROOM AIR, NO DISTRESS OR SHORTNESS OF BREATH NOTED. IV ACCESS NOTED ON LEFT HAND #20G, INTACT AND PATENT. ALL MEDICATIONS GIVEN ORDERED, WOUND CARE PERFORMED DURING SHIFT. FALL AND SAFETY MEASURES IN PLACE, BED ALARM ON, BED IN LOW AND LOCK POSITION, CALL LIGHT AND TABLE WITHIN EASY REACH, SIDE RAILS UP X2. WILL ENDORSE TO ONCOMING SHIFT
[2021-04-19] MEDS: MORPHINE SULFATE INJ 2 MG/ML DISP.SYRIN IM PRN (18:37)
--- NOTE | 2021-04-19 19:30 | NUR ---
MS RN OPENING NOTES RECEIVED PATIENT AWAKE IN BED. A/O X4. NO S/S OF PAIN NOTED AT THIS TIME. PT STABLE ON ROOM AIR. NO SOB OR S/S OF RESPIRATORY DISTRESS AT THIS TIME. IV ACCESS LEFT HAND 20 GAUGE, INTACT AND PATENT. SAFETY PRECAUTIONS IN PLACE. BED IN LOWEST LOCKED POSITION, HOB ELEVATED, SIDE RAILS UP X2, AND CALL LIGHT AND TABLE WITHIN REACH. WILL CONTINUE WITH PLAN OF CARE.
[2021-04-19 20:00] VITALS: BP 153/53
[2021-04-20] MEDS: BLOOD SUGAR DIAGNOSTIC 1 EACH STRIP IN SCH ×4 (06:35→22:02)
[2021-04-20] MEDS: INSULIN REGULAR, HUMAN 100 UNIT/ML 3 ML VIAL SQ PRN ×4 (06:45→22:04)
--- NOTE | 2021-04-20 06:57 | NUR ---
MS RN CLOSING NOTES PATIENT IS IN BED RESTING, AWAKE. A/O X4. NO S/S OF PAIN NOTED AT THIS TIME. PT STABLE ON ROOM AIR. NO SOB OR S/S OF RESPIRATORY DISTRESS NOTED. IV ACCESS NOTED ON LEFT HAND #20G, INTACT AND PATENT. ALL MEDICATIONS GIVEN ORDERED, WOUND CARE PERFORMED DURING SHIFT. ALL NEEDS MET AT THIS TIME. SAFETY PRECAUTIONS MAINTAINED AT ALL TIMES. BED IN LOWEST LOCKED POSITION, HOB ELEVATED, SIDE RAILS UP X2, AND CALL LIGHT AND TABLE WITHIN REACH. WILL ENDORSE TO ONCOMING NURSE FOR KALLI.
[2021-04-20 08:00] VITALS: BP 137/90
[2021-04-20] MEDS: ASPIRIN 81 MG TAB.CHEW PO SCH (08:13)
[2021-04-20] MEDS: ATORVASTATIN 40 MG TABLET PO SCH (08:13)
[2021-04-20] MEDS: NEOMY SULF/BACITRAC ZN/POLY 15 GM TUBE TP SCH (08:13)
[2021-04-20] MEDS: ENOXAPARIN SODIUM 40 MG/0.4 ML DISP.SYRIN SQ SCH (15:36)
[2021-04-20 16:00] VITALS: BP 131/84
[2021-04-20 20:00] VITALS: BP 127/52
[2021-04-20] MEDS: MORPHINE SULFATE INJ 2 MG/ML DISP.SYRIN IM PRN (23:31)
--- NOTE | 2021-04-20 23:31 | NUR ---
RN NOTE PT COMPLAINED OF R FOOT PAIN 11/29. ADMINISTERED MORPHINE 2 MG ORDERED. VSS. WILL CONTINUE TO MONITOR.
[2021-04-21] MEDS: BLOOD SUGAR DIAGNOSTIC 1 EACH STRIP IN SCH ×4 (06:30→21:55)
[2021-04-21] MEDS: INSULIN REGULAR, HUMAN 100 UNIT/ML 3 ML VIAL SQ PRN ×4 (06:32→21:57)
--- NOTE | 2021-04-21 07:23 | NUR ---
RN OPENING NOTE- PT ASLEEP IN BED. EASILY AWAKENED. A/O X4. NO S/S OF PAIN NOTED AT THIS TIME. PT STABLE ON ROOM AIR. NO SOB OR S/S OF RESPIRATORY DISTRESS AT THIS TIME. IV ACCESS LEFT HAND 20 GAUGE. SAFETY PRECAUTIONS IN PLACE. BED IN LOWEST LOCKED POSITION, HOB ELEVATED, SIDE RAILS UP X2, AND CALL LIGHT AND TABLE WITHIN REACH. WILL CONTINUE WITH PLAN OF CARE.
[2021-04-21 08:25] VITALS: BP 124/76
[2021-04-21] MEDS: ATORVASTATIN 40 MG TABLET PO SCH (08:28)
[2021-04-21] MEDS: ASPIRIN 81 MG TAB.CHEW PO SCH (08:28)
[2021-04-21] MEDS: NEOMY SULF/BACITRAC ZN/POLY 15 GM TUBE TP SCH (08:30)
--- NOTE | 2021-04-21 12:47 | NUR ---
RN NOTE- DRESSING CHANGE TO RT FOOT WOUND, OLD DRESSING REMOVED. SCANT AMOUNT OF SEROUS DRAINAGE. NO CRUSTING, NO ERYTHEMA, NO EXUDATE, NO PURULENCE OR ODOR. SUTURE LINE INTACT. NO DEHISCENCE PRESENT. CLEANSED W NS, PETROLEUM DRESSING APPLIED. WRAPPED W KERLIX, TAPED SECURELY. TOLERATED WELL.
[2021-04-21] MEDS: ENOXAPARIN SODIUM 40 MG/0.4 ML DISP.SYRIN SQ SCH (15:25)
[2021-04-21 16:11] VITALS: BP 135/81
--- NOTE | 2021-04-21 18:25 | NUR ---
RN CLOSING NOTE-PT IN BED, A/O X4. NO S/S OF PAIN NOTED AT THIS TIME. PT STABLE ON ROOM AIR. NO SOB OR S/S OF RESPIRATORY DISTRESS AT THIS TIME. IV ACCESS LEFT HAND 20 GAUGE. DRESSING DRY INTACT TO RT FOOT. ELEVATED ON PILLOWS. SAFETY PRECAUTIONS IN PLACE. BED IN LOWEST LOCKED POSITION, HOB ELEVATED, SIDE RAILS UP X2, AND CALL LIGHT AND TABLE WITHIN REACH. WILL CONTINUE WITH PLAN OF CARE.
--- NOTE | 2021-04-21 19:18 | NUR ---
RN CLOSING NOTE PT IN BED, A/O X4. NO S/S OF PAIN NOTED AT THIS TIME. PT STABLE ON ROOM AIR. NO SOB OR S/S OF RESPIRATORY DISTRESS AT THIS TIME. IV ACCESS LEFT HAND 20 GAUGE. DRESSING DRY INTACT TO RT FOOT. ELEVATED ON PILLOWS. SAFETY PRECAUTIONS IN PLACE. BED IN LOWEST LOCKED POSITION, HOB ELEVATED, SIDE RAILS UP X2, AND CALL LIGHT AND TABLE WITHIN REACH. WILL CONTINUE TO MONITOR. Addendum: 04/21/21 at 1919 by AMITA VALDEZ RN OPENING NOTES
[2021-04-21 20:00] VITALS: BP 123/78
[2021-04-21] MEDS: MORPHINE SULFATE INJ 2 MG/ML DISP.SYRIN IM PRN (23:44)
--- NOTE | 2021-04-21 23:44 | NUR ---
MS RN NOTES PRN MORPHINE GIVEN FOR RIGHT FT PAIN TOLERATED WELL WILL CONTINUE TO MONITOR.
[2021-04-22] MEDS: BLOOD SUGAR DIAGNOSTIC 1 EACH STRIP IN SCH (06:45)
[2021-04-22] MEDS: INSULIN REGULAR, HUMAN 100 UNIT/ML 3 ML VIAL SQ PRN (06:46)
--- NOTE | 2021-04-22 06:54 | NUR ---
RN CLOSING NOTE PT IN BED, A/O X4. NO S/S OF PAIN NOTED AT THIS TIME. PT STABLE ON ROOM AIR. NO SOB OR S/S OF RESPIRATORY DISTRESS AT THIS TIME. IV ACCESS LEFT HAND 20 GAUGE. DRESSING DRY INTACT TO RT FOOT. ELEVATED ON PILLOWS. SAFETY PRECAUTIONS IN PLACE. BED IN LOWEST LOCKED POSITION, HOB ELEVATED, SIDE RAILS UP X2, AND CALL LIGHT AND TABLE WITHIN REACH. WILL endorse care to day shift nurse.
--- NOTE | 2021-04-22 07:25 | NUR ---
RN NOTES ENDORSED BY [employer] RN, FOR D/C TO HOME TODAY. PATIENT RESTING IN BED AWAKE AND VERBALLY RESPONSIVE. A/O X4, AWARE OF PLAN OF CARE. ASSISTED W/ SETTING UP FWW DEVICE AT BEDSIDE.
[2021-04-22] MEDS: ASPIRIN 81 MG TAB.CHEW PO SCH (08:25)
[2021-04-22] MEDS: ATORVASTATIN 40 MG TABLET PO SCH (08:25)
[2021-04-22] MEDS: NEOMY SULF/BACITRAC ZN/POLY 15 GM TUBE TP SCH (08:28)
[2021-04-22 08:30] VITALS: BP 139/78
[2021-04-22] MEDS: MORPHINE SULFATE INJ 2 MG/ML DISP.SYRIN IM PRN (08:42)
--- NOTE | 2021-04-22 09:46 | NUR ---
RN NOTES PATIENT FOR DISCHARGE TO HOME TODAY W/ HH FOLLOW-UP. DISCHARGE INSTRUCTION AND EDUCATION PROVIDED TO PATIENT; PREFERRED PHARMACY IN SYSTEM NOT THE PHARMACY OF CHOICE PER PATIENT. DISCHARGE FORM AND BELONGINGS LIST FORM SIGNED BY PATIENT AND ALL BELONGINGS ACCOUNTED FOR. EXPLAINED THAT WILL TRY TO CALL [facility] FOR TRANSFER OF INFORMATION BUT EMPHASIZED TO [facility] AT [facility] WHERE MEDS HAVE BEEN TRANSMITTED; VERBALIZED UNDERSTANDING. IV LINE REMOVED. R FOOT W/ DRESSING DRY AND INTACT; PATIENT PREFERRED NOT TO HAVE PICTURE TAKEN AT THIS TIME AREA IS WRAPPED W/ DRESSING ALREADY. PATIENT IS AMBULATORY AND ABLE TO USE FWW ASSISTIVE DEVICE. ACCOMPANIED PATIENT TO THE LOBBY AND PICKED UP BY SISTER VIA PRIVATE CAR. CHARGE NURSE AND MD AWARE OF DISCHARGE.
== END 2021-04-22 09:40 | disposition home health service (06) | DRG 501 ==
LOC: MED 08:18
PROVIDERS: ADMIT Nurse Practitioner Acute Care; ATTEND Hospitalist
PROC: 0KBV0ZZ Excision of Right Foot Muscle, Open Approach (ICD-10-PCS; principal; 2021-04-11)
DX: S92.311A Displaced fracture of first metatarsal bone, right foot, initial encounter for closed fracture (principal); D68.59 Other primary thrombophilia; E78.5 Hyperlipidemia, unspecified; E11.9 Type 2 diabetes mellitus without complications; I10 Essential (primary) hypertension; W23.0XXA Caught, crushed, jammed, or pinched between moving objects, initial encounter; Z20.822 Contact with and (suspected) exposure to COVID-19; K59.00 Constipation, unspecified; Z74.09 Other reduced mobility; E66.01 Morbid (severe) obesity due to excess calories; S92.334A Nondisplaced fracture of third metatarsal bone, right foot, initial encounter for closed fracture; S92.324A Nondisplaced fracture of second metatarsal bone, right foot, initial encounter for closed fracture; Y92.9 Unspecified place or not applicable
CPT/HCPCS: 36415; 71045-TC; 80048-TC; 80061-TC; 82962-TC; 83735-TC; 84100-TC; 85025-TC; 85610-TC; 85730-TC; 87081-TC; 97116-TC; 97530-TC; A4217; A6253; A6403; G0378; J0690; J1100; J1170; J1650; J1815; J2270; J2405; J2704; J3490; J7030; J7050; J7060